=== PATIENT | female | born 1965 | race Caucasian/White ===

== ENCOUNTER 2023-11-03 12:03 | Outpatient (CLI) | payer OTHER, SELFPAY ==
[2023-11-03 18:51] LABS: Hemoglobin 13.8 g/dL (12.0-15.0); Mean Corpuscular HGB Conc 30.7 g/dl (32-36); Mean Corpuscular Hemoglobin 29.6 pg (26-34); Mean Corpuscular Volume 96.6 fl (80-100); Platelet Count Result 220 k/mm3 (150-375); Red Blood Count 4.66 M/mm3 (4.2-5.4); Red Cell Distribution Width 13.5 % (11.5-14.5); White Blood Count 8.2 K/mm3 (4.5-10.0)
[2023-11-03 21:19] LABS: Folic Acid > 20.0 ng/mL (2.76->20)
[2023-11-03 22:04] LABS: Hemoglobin A1C 7.5 % (<5.7)
[2023-11-04 00:03] LABS: Alanine Aminotransferase 19 U/L (6-35); Albumin Level 4.5 g/dL (3.5-5.1); Alkaline Phosphatase 90 U/L (38-126); Anion Gap 9 mmol/L (4-12); Aspartate Amino Transferase 44 U/L (14-36); Bilirubin,Total 0.6 mg/dL (0.2-1.3); Blood Urea Nitrogen 11 mg/dL (7-17); Calcium 9.6 mg/dL (8.4-10.2); Carbon Dioxide 26 mmol/L (22-30); Chloride 107 mmol/L (98-107); Cholesterol 131 mg/dL (0-200); Estimated Glomerular Filt Rate > 60; Glucose 130 mg/dL (65-110); HDL Direct 30 mg/dL; Potassium 4.6 mmol/L (3.4-5.0); Sodium 142 mmol/L (137-145); Triglycerides 81 mg/dL (<150)
[2023-11-04 00:13] LABS: LDL Cholesterol Direct 93 mg/dL
== END 2023-11-03 12:04 | disposition home or self-care (01) ==
PROVIDERS: PCP Nurse Practitioner Adult Health; Visit Provider Nurse Practitioner Adult Health
DX: E11.9 Type 2 diabetes mellitus without complications (principal); Z98.890 Other specified postprocedural states
CPT/HCPCS: 36415; 80053; 80061; 82607; 82746; 83036; 84443; 85027

== ENCOUNTER 2024-03-26 14:22 | Outpatient (CLI) | payer OTHER, SELFPAY ==
--- NOTE | ~2024-03-26 | XR_ITS ---
EXAMINATION: XR knee LT min 4V, XR knee RT min 4V DATE: 03/26/2024 14:51 INDICATION: Bilateral primary osteoarthritis of the knees TECHNIQUE: 1. Weight bearing anteroposterior and Álvarez, sunrise, and flexed lateral views of the left knee w ere obtained. 2. Weight bearing anteroposterior and Álvarez, sunrise, and flexed lateral views of the right knee were obtained. COMPARISON: None. FINDINGS: Tricompartmental osteoarthritis at the bilateral knees, severe at the lateral compartment of the left knee with remodeling of the articular surface of the lateral tibial plateau and resulting in mild le ft genu valgus. There is moderate disc height loss in the medial compartment of the left knee and all 3 compartments of the right knee and mild joint space narrowing at the patellofemoral compartment of the left knee. Or marginal osteophytes in all 3 components of both knees most prominent at the yarbrough lofemoral compartments. No fractures. No knee joint effusions. Moderate-sized enthesophyte at the dis tami pole of the left patella. IMPRESSION: 1. Tricompartmental osteoarthritis at both knees, severe at the lateral compartment of the left knee and moderate at the medial compartment left knee and all 3 compartments in the right knee. Reviewed, dictated and finalized at location A. IMPRESSION: 1. Tricompartmental osteoarthritis at both knees, severe at the lateral compart ment of the left knee and moderate at the medial compartment left knee and all 3 compartments in the right knee.
== END 2024-03-26 14:23 | disposition home or self-care (01) ==
PROVIDERS: PCP Nurse Practitioner Adult Health; Visit Provider Orthopaedic Surgery
DX: M17.0 Bilateral primary osteoarthritis of knee (principal)
CPT/HCPCS: 73564

== ENCOUNTER 2025-04-12 11:43 | Outpatient (CLI) | payer OTHER, SELFPAY ==
[2025-04-12 13:26] LABS: Hematocrit 43.0 % (37.0-47.0); Hemoglobin 13.6 g/dL (12.0-15.0); Immature Granulocyte Percent A 0.4 % (0-0.5); Lymphocytes Absolute Auto 2.04 K/mm3 (0.9-3.2); Mean Corpuscular HGB Conc 31.6 g/dl (32-36); Mean Corpuscular Hemoglobin 30.4 pg (26-34); Mean Corpuscular Volume 96.2 fl (80-100); Nucleated Red Blood Cells Absolute Auto 0.000 K/mm3 (0.0-0.012); Nucleated Red Blood Cells Perc 0.0 % (0.0-0.2); Platelet Count Result 194 k/mm3 (150-375); Red Blood Count 4.47 M/mm3 (4.2-5.4); White Blood Count 7.2 K/mm3 (4.5-10.0)
[2025-04-12 13:40] LABS: Albumin Level 4.1 g/dL (3.5-5.1)
[2025-04-12 13:47] LABS: Anion Gap 5 mmol/L (4-12); Blood Urea Nitrogen 11 mg/dL (7-17); Calcium 8.8 mg/dL (8.4-10.2); Carbon Dioxide 29 mmol/L (22-30); Chloride 102 mmol/L (98-107); Estimated Glomerular Filt Rate > 60; Glucose 91 mg/dL (65-110); Potassium 4.3 mmol/L (3.4-5.0); Sodium 136 mmol/L (137-145)
[2025-04-12 14:44] LABS: MRSA (PCR) NOT DETECTED (NOT DETECTE)
[2025-04-12 15:43] LABS: Hemoglobin A1C 6.3 % (<5.7)
== END 2025-04-12 11:44 | disposition home or self-care (01) ==
LOC: ANHSURGERY 11:46
PROVIDERS: Anesthesiology; PCP Nurse Practitioner Family; Visit Provider Orthopaedic Surgery
DX: Z01.812 Encounter for preprocedural laboratory examination (principal); M17.2 Bilateral post-traumatic osteoarthritis of knee; E11.9 Type 2 diabetes mellitus without complications
CPT/HCPCS: 36415; 73564; 80048; 80307; 82040; 83036; 85025; 87641

== ENCOUNTER 2025-04-12 14:32 | Outpatient (CLI) | payer OTHER, SELFPAY ==
--- NOTE | ~2025-04-12 | XR_ITS ---
EXAMINATION: XR knee LT min 4V, 04/12/2025 14:35 CDT HISTORY: M17.0 - Bilateral primary osteoarthritis of knee COMPARISON: No comparisons available. Findings: No acute fracture or malalignment. Severe tricompartmental degenerative changes, small effusion Soft tissues unremarkable. Impression: No acute fracture or malalignment. Reviewed, dictated and finalized at location A. Impression: No acute fracture or malalignment.
--- OUTSIDE RECORDS SUMMARY | 2025-04-12 15:09 | XMS_ITS | Clinical Summary ---
Author Organization [facility] Address [address] [place] [address] Phone Care Team Providers Care Game Moderator Name Role Phone Unavailable Primary Care Provider Unavailabl e Allergies No known active allergies Medications celecoxib (CeleBREX) 200 MG Capsule Take 200 mg by mouth 2 times daily. Active omeprazole (PriLOSEC) 40 MG CAPSULE DELAYED RELEASE Take 40 mg by mouth nightly. Active escitalopram (Lexapro) 20 MG Tablet Take 20 mg by mouth nightly. Active irbesartan (AVAPRO) 300 MG Tablet Take 300 mg by mouth nightly. Active Semaglutide,0.2 5 or 0.5MG/DOS, (Ozempic, 0.25 or 0.5 MG/DOSE,) 2 MG/1.5ML Solution Pen-injector by Subcutaneous route once a week. Active Estradiol (Imvexxy Maintenance Pack) 10 MCG INSERT by Vaginal route once a week. Active Cholecalciferol (VITAMIN D3 PO) Take by mouth daily. Active Cyanocobalamin (VITAMIN B12 PO) Take by mouth daily. Active Multiple Vitamin (MULTI-VITAMIN PO) Take by mouth daily. Active ALPRAZolam (XANAX PO) Take 0.25 mg by mouth. Active Family History Medical History Relation Name Comments Cancer Maternal Grandfather Liver Cancer Maternal Grandmother Blood Cancer Mother Breast Stroke Mother Cancer Paternal Grandmother Female Relation Name Status Comments Father Maternal Grandfather Maternal Grandmother Mother Paternal Grandmother Social History Tobacco Use Types Packs/Day Years Used Date Smoking Tobacco: Never Smokeless Tobacco: Never Alcohol Use Standard Drinks/Week Comments Not Currently 0 (1 standard drink = 0.6 oz pur e alcohol) Comments Unknown Sex and Gender Information Value Date Recorded Sex Assigned at Not on file Legal Sex Female 11:32 PM CDT Gender Identity Not on file Sexual Orientation Not on file Last Filed Vital Signs Vital Sign Reading Time Taken Comments Blood Pressure 119/68 01/18/2021 12:06 PM CDT Pulse 77 01/18/2021 12:06 PM CDT Temperature 36 C (96.8 F) 01/18/2021 12:06 PM CDT Respiratory Rate 20 01/18/2021 12:06 PM CDT Oxygen Saturation 100% 01/18/2021 12:06 PM CDT Inhaled Oxygen Concentration - - Weight 121.6 kg (268 lb) 01/02/2021 9:00 AM CDT Height 170.2 cm (5' 7) 01/02/2021 9:00 AM CDT Body Mass Index 41.97 01/02/2021 9:00 AM CDT Plan of Treatment Health Maintenance Due Date Last Done Comments Hepatitis C Virus (HCV) Screening 1965 Mammogram 1965 Hepatitis B Immunization (1 of 3 - 19+ 3-dose series) 1984 Pap Smear 1986 Cervical Cancer Screening (CCS) 10/24/1995 HPV/Cotest 10/24/1995 Cologuard 2010 Immunochemical Fecal Occult Blood 2010 Pneumococcal Immunization (5 0+ years) (1 of 1 - PCV) 10/24/2015 Zoster Immunization (1 of 2) 10/24/2015 Influenza Immunization (#1) 2025 SARS-COV-2 Immunization (3 - 2024- season) 2025 11/10/2020, 10/13/2020 Colonoscopy 01/18/2031 01/18/2021 Colorectal Cancer Screening 01/18/2031 Respiratory Syncytial Virus (RSV) Immunization (Adult) (1 - 1-dose 75+ series) 2040 DTaP/Tdap/Td Immunization Discontinued 11/26/2015 TdaP Immunization Completed 11/26/2015 Human Papillomavirus (HPV) Immunization Aged Out No longer eligible based on patient's age to complete this topic Meningococcal Immunization (ACWY) Aged Out No longer eligible based on patient's age to complete this topic Rotavirus Immunization Aged Out No lo nger eligible based on patient's age to complete this topic
--- OUTSIDE RECORDS SUMMARY | 2025-04-12 15:09 | XMS_ITS | Clinical Summary ---
Author Organization [facility] Aut[facility] Address [address] [place] [address] Care Team Providers Care Hat Maker Name Role Phone Karlene Nguyen RN Unavailable Unavailable Dafne Lutz MD Unavailable [phone] Source Comments [facility],non-owned Affiliates and Associated Physician Practices is amultiple site organization consisting of ambulatory clinics and hospital sitesin [place], [place], [place] and [place]. This disclosure is being madepursuant to the Care Everywhere program and may not contain all information available regarding this patient. Last updated 18.[facility] [employer] Allergies Active Allergy Reactions Criticality Noted Date Comments Ibuprofen 11/26/2011 Metformin 11/26/2011 Medications * Be aware that medications may not be up to date on this document. Alwaysverify current medications with the patient. valsartan-hydroc hlorothiazide (DIOVAN HCT) 320-25 MG tablet Take 1 Tab by mouth once daily. I po qd. Active omeprazole (PRILOSEC) 20 MG capsule Take 20 mg by mouth once daily. I po qd. Active celecoxib (CELEBREX) 200 MG capsule Take 200 mg by mouth as directed. I po am. Active levonorgestrel-e thinyl estradiol (SEASONALE) tablet Take 1 Tab by mouth once daily. I po qd. Active escitalopram (LEXAPRO) 20 MG tablet Take 20 mg by mouth once daily. I po qd. Active cycloSPORINE (RESTASIS) 0.05 % ophthalmic suspension 2 times daily. Acti ve Accu-Chek Multiclix Lancets MISC Use 1 Each three times daily before meals and at bedtime. 50 Each 3 09/10/19 13 Active insulin pen needle (NOVOFINE 30) 30G X 8 MM needle 1 Each by Injection route 2 times daily. 100 Each 6 09/20/19 13 Active liraglutide (VICTOZA) 18 MG/3ML injection Inject 1.8 mg subcutaneously once daily. Active rosuvastatin (CRESTOR) 10 MG tablet Take 1 Tab by mouth once daily. 90 Tab 3 01/22/20 13 Active Insulin Pump Disposable (V-GO 40) KITIndications:T ype II or unspecified type diabetes mellitus without mention of complication, uncontrolled Use 40 Units once daily. 40 units daily basal and 6 units with meals + SS insulin adding 2 units for each 50 that BS > 150 at mealtime 10 Kit 6 02/01/20 13 Active hydrocortisone (HYTONE) 2.5 % cream Apply to affected area 4 times daily. 20 g 1 10/13/19 14 Active insulin pen needle (NOVOFINE) 32G X 6 MM MISC Use as directed to inject twice daily 100 Each 6 11/03/19 14 Active glimepiride (AMARYL) 4 MG tablet Take two tablets by mouth daily 180 Tab 1 11/17/19 14 Active blood glucose (DILIA CONTOUR NEXT TEST) test strip Tests blood sugars twice daily and as needed 100 Strip 3 11/23/19 14 Active insulin lispro (HUMALOG) vial Basal rates at 2.6 units/hr: Total insulin 150 units daily 4 Vial 5 11/30/19 14 Active Active Problems Problem Noted Date Diagnosed Date BRENDA (obstructive sleep apnea) 09/10/2012 Type II or unspecified type diabetes mellitus without mention of complication, uncontrolled 01/09/2012 HTN (hypertension) 01/09/2012 Hyperlipidemia 01/09/2012 Morbid obesity 01/09/2012 Malaise and fatigue 01/09/2012 Depression 01/09/2012 Family History Medical History Relation Name Comments Cancer Brother 2 stomach Cancer Maternal Grandfather Cancer Maternal Grandmother Arthritis - Rheumatoid Mother Hypertension Mother Stroke Mother Relation Name Status Comments Brother 1 Alive Brother 2 Father accident Maternal Grandfather Maternal Grandmother Mother Alive Social History Tobacco Use Types Packs/Day Years Used Date Smoking Tobacco: Never Alcohol Use Standard Drinks/Week Comments No 0 (1 standard drink = 0.6 oz pur e alcohol) Comments Unknown Sex and Gender Information Value Date Recorded Sex Assigned at Not on file 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 Gender Identity Not on file Sexual Orientation Not on file Last Filed Vital Signs Vital Sign Reading Time Taken Comments Blood Pressure 124/82 10/12/2013 1:16 PM CDT Pulse 84 10/12/2013 1:16 PM CDT Temperature - - Respiratory Rate 24 10/12/2013 1:16 PM CDT Oxygen Saturation - - Inhaled Oxygen Concentration - - Weight 162.4 kg (358 lb) 10/12/2013 1:16 PM CDT Height 170.2 cm (5' 7) 10/12/2013 1:16 PM CDT Body Mass Index 56.07 10/12/2013 1:16 PM CDT Plan of Treatment Health Maintenance Due Date Last Done Comments COLOGUARD (AGES 45-75) - COL ON CA SCREENING 1965 COLON MONITORING 1965 COLONOSCOPY - COLON CA SCREENING 1965 CT COLONOGRAPHY - COLON CA SCREENING 1965 Colorectal Cancer Screening 1965 FIT - COLON CA SCREENING 1965 FLEX SIG - COLON CA SCREENING 1965 MAMMOGRAM 1965 HIV SCREENING 1980 HEPATITIS C SCREENING 10/19/1983 DIABETES-SERUM CREATININE 10/24/1983 DTAP/TDAP/TD VACCINES (1 - Tdap) 1984 HEPATITIS B VACCINE (1 of 3 - 19+ 3-dose series) 1984 DIABETES-FOOT EXAM WITH MONOFILAMENT 09/10/2012 DIABETES-HGB A1C 09/10/2012 PNEUMOCOCCAL VACCINE 50+ (1 of 1 - PCV) 10/24/2015 ZOSTER VACCINE (1 of 2) 10/24/2015 DEPRESSION SCREENING 07/27/2024 DIABETES - URINE PROTEIN SCREENING 07/27/2024 COVID-19 VACCINE (1 - 2023-2 5 season) 2025 INFLUENZA VACCINE (#1) 2025 HIB VACCINE Aged Out No longer eligi ble based on patient's age to complete this topic HPV VACCINE Aged Out No longer eligi ble based on patient's age to complete this topic MENINGOCOCCAL (Group B) VACC INE SHARED DECISION-MAKING Aged Out No longer eligibl e based on patient's age to complete this topic MENINGOCOCCAL GROUPS A/C/Y/W VACCINE Aged Out No longer eligible b ased on patient's age to complete this topic Insurance Care Teams Hat Maker Relationship Specialty Start Date End Date Karlene Nguyen RN Registered Nurse 01/09/12 Dafne Lutz MD Obstetrics and Gynecology 01/09/12
--- OUTSIDE RECORDS SUMMARY | 2025-04-12 15:09 | XMS_ITS | Clinical Summary ---
Author Organization [facility] Address [address] [place] [address] Care Team Providers Care Director Of Residence Life Name Role Phone NeelaRivka Roney ASSISTANT PROFESSOR NURSE EDUCATION Primary Care Provider + Allergies Active Allergy Reactions Criticality Noted Date Comments Adhesive Tape-Silicones Rash Medium Ibuprofen Rash Medium 11/26/2011 Metformin Stomach upset Low 11/26/2011 Medications cycloSPORINE (RESTASIS) 0.05 % ophthalmic emulsion instill 1 drop by ophthalmic route every 12 hours into affected eye(s) 0 3 Active escitalopram (LEXAPRO) 20 mg tablet take 1 tablet (20MG) by oral route every day 0 2 Active celecoxib (CeleBREX) 200 mg capsule take 1 capsule (200MG) by oral route every day as needed 0 2 Active omeprazole (PriLOSEC) 40 mg capsule take 1 capsule by oral route every day before a meal 0 2 Active cyanocobalamin (VITAMIN B-12) 1,000 mcg/mL injection inject 1 milliliter by INTRAMUSCULAR route every month 1 vial 5 6 Active triamcinolone (KENALOG) 0.5 % ointmentIndica tions:Vulvar itching Apply topically 2 (two) times a day 30 g 9 Active Additional Information Patient not taking.Reported on 03/16/2025 ticagrelor (BRILINTA) 90 mg tabletIndicati ons:cardiovasc ular disease Take 1 tablet (90 mg total) by mouth 2 (two) times a day 60 tablet 11 5 Active Ozempic 2 mg/dose (8 mg/3 mL) pen injector injection Inject 2 mg under the skin once a week 4 Active aspirin 81 mg enteric coated tablet Take 1 tablet (81 mg total) by mouth daily 90 tablet 3 5 10/14/19 26 Active atorvastatin (LIPITOR) 80 mg tablet Take 1 tablet (80 mg total) by mouth nightly 90 tablet 3 5 10/14/19 26 Active lisinopriL (PRINIVIL,ZEST RIL) 5 mg tabletIndicati ons:cardiovasc ular disease Take 1 tablet (5 mg total) by mouth daily 90 tablet 3 5 10/14/19 26 Active metoprolol tartrate (LOPRESSOR) 25 mg immediate release tablet Take 0.5 tablets (12.5 mg total) by mouth 2 (two) times a day 90 tablet 3 5 10/19/19 26 Active Active Problems Problem Noted Date Diagnosed Date STEMI (ST elevation myocardial infarction) 08/04 Healthcare maintenance 05/28/2017 Medication management 05/28/2017 Primary osteoarthritis of both knees 02/09/2017 Drug indicated 02/07/2014 Overview (10/31/2016): LONG-TERM USE MEDS NEC Arthropathy of pelvis 12/10/2013 Overview (10/29/2016): ARTHROPATHY NOS-PELVIS Depression 12/10/2013 Overview (11/06/2017): NEUROTIC DEPRESSION Multiple-type hyperlipidemia 12/10/2013 Overview (10/29/2016): MIXED HYPERLIPIDEMIA Obstructive sleep apnea syndrome 12/10/2013 Overview (10/29/2016): OBSTRUCTIVE SLEEP APNEA Hypertension 12/10/2013 Overview (10/29/2016): HYPERTENSION NOS Disorder of joint 12/10/2013 Overview (10/30/2016): ARTHROPATHY NOS-L/LEG Back pain 12/10/2013 Overview (10/30/2016): BACKACHE NOS Obesity, diabetes, and hypertension syndrome Overview (10/30/2016): DYSMETABOLIC SYNDROME X Benign hypertension 12/10/2013 Overview (10/31/2016): BENIGN HYPERTENSION Disorder of intervertebral disc 12/10/2013 Overview (10/31/2016): DISC DIS NEC/NOS-LUMBAR Morbid obesity 11/22/2012 Malaise and fatigue 01/09/2012 Type II or unspecified type diabetes mellitus without mention of complication, uncontrolled 01/09/2012 Encounters Date Type Department Care Team Description 03/16/2025 11:45 AM CDT Office Visit [facility] at [address] [place] [phone] Toribio Mauricio NP Arthropathy of pelvis (Primary Dx); Morbid obesity (HCC); Obstructive sleep apnea syndrome; Back pain, unspecified back location, unspecified back pain laterality, unspecified chronicity; Multiple-type hyperlipidemia; ST elevation myocardial infarction involving right coronary artery (HCC) 01/23/2025 Telephone [facility] at [address] [place] [address] [phone] Tosin Martin MA from Last 3 Months Immunizations Immunization Administration Dates Next Due Tdap 11/26/2015 Surgical History Surgery Date Site/Laterality Comments CARPAL TUNNEL RELEASE 07/27/2009 - 07/26/2010 Bilateral LAMINECTOMY 07/27/1995 - 07/26/1996 PARTIAL GASTRECTOMY 07/27/2013 - 07/26/2014 vertical sleeve gastrectomy ENDOMETRIAL ABLATION W/ NOVJOHNNA 07/27/2014 - 07/26/2015 Medical History Medical History Date Comments Hyperlipidemia Sleep apnea Osteoarthritis Depression 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 GERD (gastroesophageal reflux disease) RLS (restless legs syndrome) Hx of degenerative disc disease Abnormal Pap smear of cervix 2015 ASC US, HPV (+) pap smear Hypertension Family History Medical History Relation Name Comments Diabetes Cousin Car Accident Father COD at age 28 Heart attack Father's Brother Stomach cancer Half-Brother Liver cancer Maternal Grandfather Cancer Maternal Grandmother blood cancer; Breast cancer Mother Coronary artery disease Mother Depression Mother Hypertension Mother Obesity Mother Stroke Mother Diabetes Mother's Sister Pancreatic cancer Other Cancer Paternal Grandmother female ; treated w/ internal radiation Uterine cancer Paternal Grandmother Relation Name Status Comments Cousin Father (Age 28) Father's Brother Half-Brother Maternal Grandfather Maternal Grandmother Mother Alive Mother's Sister Other Paternal Grandmother Alive Social History Tobacco Use Types Packs/Day Years Used Date Smoking Tobacco: Never Smokeless Tobacco: Never Tobacco Cessation:Counseling Given: Not Answered Alcohol Use Standard Drinks/Week Comments No 0 (1 standard drink = 0.6 oz pur e alcohol) [facility] Utilities Answer Date Recorded In the past 12 months has th e electric, gas, oil, or water company threatened to shut off services in your home? No 08/05/2024 Social Connection and Isolation Panel Answer Date Recorded In a typical week, how many times do you talk on the phone with family, friends, or neighbors? More than three times a week 08/05/2024 How often do you get togethe r with friends or relatives? More than three times a week 08/05/2024 How often do you attend chur ch or mandaen services? Never 08/05/2024 Do you belong to any clubs o r organizations such as adventism groups, unions, fraternal or athletic groups, or school groups? No 08/05/2024 How often do you attend meet ings of the clubs or organizations you belong to? Never 08/05/2024 Are you , , di vorced, , never , or living with a partner? 08/05/2024 Overall Financial Resource Strain (CARDIA) Answe r Date Recorded How hard is it for you to pa y for the very basics like food, housing, medical care, and heating? Not hard at all 08/05/2024 Hunger Vital Sign Answer Date Recorded Within the past 12 months, y ou worried that your food would run out before you got the money to buy more. Never true 08/05/19 25 Within the past 12 months, t he food you bought just didn't last and you didn't have money to get more. Never true 08/05/2024 PRAPARE - Transportation Answer Date Re corded In the past 12 months, has l ack of transportation kept you from medical appointments or from getting medications? No 07/27 In the past 12 months, has l ack of transportation kept you from meetings, work, or from getting things needed for daily living? No 08/05/2024 Housing Stability Vital Sign Answer Irvin e Recorded In the last 12 months, was t here a time when you were not able to pay the mortgage or rent on time? No 08/05/2024 In the past 12 months, how m any times have you moved where you were living? 0 08/05/2024 At any time in the past 12 m [facility], were you homeless or living in a skilled nursing (including now)? No 08/05/2024 Personal Safety Answer Date Recorded Have you ever been in or are you currently in a harmful physical or emotional relationship or is someone making you feel afraid or unsafe? 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 Not on file Not on file Obstetrics History Para Term AB IAB SAB Ectopic Multiple Livin g Live Births 0 0 0 0 0 0 0 0 0 0 0 Last Filed Vital Signs Vital Sign Reading Time Taken Comments Blood Pressure 129/79 03/16/2025 11:51 AM CDT Pulse 80 03/16/2025 11:51 AM CDT Temperature 36.5 C (97.7 F) 08/06/2024 8:10 AM RECONNAISSANCE CREWMEMBER Respiratory Rate 18 03/16/2025 11:51 AM CDT Oxygen Saturation 97% 08/06/2024 8:10 AM RECONNAISSANCE CREWMEMBER Inhaled Oxygen Concentration - - Weight 108.4 kg (239 lb) 03/16/2025 11:51 AM CDT Height 170.2 cm (5' 7) 03/16/2025 11:51 AM CDT Body Mass Index 37.43 03/16/2025 11:51 AM CDT Plan of Treatment Health Maintenance Due Date Last Done Comments Albumin Creatinine Ratio, Urine 1965 Breast Cancer Screening-Mammogram 1965 Colon Cancer Screening-Colonoscopy 1965 Hepatitis C Screening 1965 Dilated Eye Exam 1965 Hepatitis B Screening 10/24/1983 Pneumococcal vaccine <65 (1 of 2 - PCV) 1984 Cervical Cancer Screening 11/19/2013 11/19/2012 Zoster Vaccine (1 of 2) 10/24/2015 Depression Screening 05/29/2018 05/29/2017 Foot Exam 05/29/2018 05/29/2017 Regular Well Visit/Exam 18-64 05/20/2020 05/20/2019, 11/06/2017 Hemoglobin A1C 02/02/2025 08/05/2024, 02/24, 05/23/2017 Covid-19 Vaccine ( - 2024-2 6 season) 2025 11/10/2020, 10/13/2020 Influenza Vaccine (#1) 2025 Lipid Panel 08/05/2025 08/05/2024, 02/24, 05/23/2017, Additional history exists eGFR 08/06/2025 08/06/2024, 07/27, 08/04/2024, Additional history exists DTaP/Tdap/Td Vaccine (2 - Td or Tdap) 11/25/2025 11/26/2015 Medical Devices Implanted Type Area Brazer Helper Induction Device Identifier Shelf Expiration Date Model / Serial / Lot Medtronic Card Vasc Surgery 2.75 X 22mm [place] [employer] Coronary Stent [id number] - [id number] Implanted:Qty: 1 on 08/04/2024 by Rakesh Hanks MD at [facility] Medtronic Card Vasc Surgery 04/15/2027 [id number] / / [id number] Procedures Procedure Name Priority Date/Time Associated Diagnosis Comments EGFR Routine 08/06/2024 7:02 AM RECONNAISSANCE CREWMEMBER HEMOGLOBIN A1C Routine 08/05/2024 5:11 AM RECONNAISSANCE CREWMEMBER LIPID PANEL Routine 08/05/2024 5:11 AM RECONNAISSANCE CREWMEMBER THINPAP, REFLEX HPV ALL PTH Routine 11/19/2012 12:48 PM CDT from Last 3 Months or Most Recently Relevant to Health Maintenance Results * eGFR (08/06/2024 7:02 AM RECONNAISSANCE CREWMEMBER) eGFR >90 >=60 mL/min/1. 73 m2 Comment: Interpretive Data Reference Interval Normal >/= 90 mL/min/1.73m2 Mildly decreased* 60 - 89 mL/min/1.73m2 Mildly to moderately decreased 45 - 59 mL/min/1.73m2 Moderately to severely decreased 30 - 44 mL/min/1.73m2 Severely decreased 15 - 29 mL/min/1.73m2 Kidney Failure < 15 mL/min/1.73m2 *Relative to young adult level Estimated glomerular filtration rate is determined by the 2020 CKD-EPI equation recommended by the National Kidney Foundation (A Unifying Approach to GFR Estimation: Recommendations of the NKF-ASK Task Force on Reassessing the Inclusion of Race in Diagnosing Kidney Disease, JASN 2020). The CKD-EPI equation should not be used for patients with unstable renal function and has not been validated in children and those over 70. Current interpretive data was last reviewed 2021. Blood 08/06/2024 7:02 AM RECONNAISSANCE CREWMEMBER 08/06/2024 7:36 AM RECONNAISSANCE CREWMEMBER Dafne Preston NP LAB BLOOD ORDERABL ES Final Result [facility] K[facility]USE [address] [address] [place] [address] * (ABNORMAL) Hemoglobin A1c (08/05/2024 5:11 AM RECONNAISSANCE CREWMEMBER) Hgb A1C 5.9(H) 4.0 - 5.6 % Estimated Average Glucose 123 mg/dL [facility] KRA[facility] Comment: The ADA recommends reporting an estimated Average Glucose (eAG) with all Hemoglobin A1c results using the equation derived from a study of 507 normal and diabetic adults. Minority populations were underrepresented and children were not included. (Diabetes Care 31:9092-4152, 2008). The eAG is not equivalent to a fasting glucose. Blood 08/05/2024 5:11 AM RECONNAISSANCE CREWMEMBER 08/05/2024 5:31 AM RECONNAISSANCE CREWMEMBER us Richard Reeder MD LAB BLOOD ORDERABLES Final R esult [facility] [address] [address] Department [place] [address] * (ABNORMAL) Lipid panel (08/05/2024 5:11 AM RECONNAISSANCE CREWMEMBER) Cholesterol 108 30 - 199 mg/dL Comment: Interpretive Data Ages < or = 19 years Acceptable: <170 mg/dL Borderline high: 170-199 mg/dL High: >or= 200 mg/dL Ages > or = 20 years Desirable: <200 mg/dL Borderline high: 200-239 mg/dL High: >or= 240 mg/dL Literature References: 1. Expert Panel on Integrated Guidelines for Cardiovascular Health and Risk Reduction in Children and Adolescents. Pediatrics 2011;128:S213 2. NCEP Expert Panel. Circulation 2004;110:227 Current Interpretive Data was last revised on 2018. Triglycerides 74 <=149 mg/dL [facility] KRAUSE Comment: Interpretive Data Ages < or = 9 years Acceptable: <75 mg/dL Borderline high: 75-99 mg/dL High: >or= 100 mg/dL Ages 10 to 20 years Acceptable: <90 mg/dL Borderline high: 90-129 mg/dL High: >or= 130 mg/dL Ages > or = 20 years Desirable: <150 mg/dL Borderline high: 150-199 mg/dL High: 200-499 mg/dL Very high: >or= 499 mg/dL Literature References: 1. Expert Panel on Integrated Guidelines for Cardiovascular Health and Risk Reduction in Children and Adolescents. Pediatrics 2011;128:S213 2. NCEP Expert Panel. Circulation 2004;110:227 Current Interpretive Data was last revised on 2018. HDL 27(L) >=40 mg/dL R[facility] KRAUSE Comment: Interpretive Data Ages < or = 19 years Acceptable: >45 mg/dL Borderline low: 40-45 mg/dL Low: <40 mg/dL Ages > or = 20 years Desirable: >or= 60 mg/dL Low: <40 mg/dL Literature References: 1. Expert Panel on Integrated Guidelines for Cardiovascular Health and Risk Reduction in Children and Adolescents. Pediatrics 2011;128:S213 2. NCEP Expert Panel. Circulation 2004;110:227 Current Interpretive Data was last revised on 2018. LDL, calculated 66 <=129 mg/dL [facility] KRAUSE Comment: Interpretive Data Ages < or = 19 years Acceptable: <110 mg/dL Borderline high: 110-129 mg/dL High: >or= 130 mg/dL Ages > or = 20 years Optimal: <100 mg/dL Near optimal: 100-129 mg/dL Borderline high: 130-159 mg/dL High: >160 mg/dL Calculated using the Prosper LDL-C estimating equation. This equation was implemented on 2024. Prior to this date LDL-C was estimated using the Friedewald equation. Literature References: 1. Expert Panel on Integrated Guidelines for Cardiovascular Health and Risk Reduction in Children and Adolescents. Pediatrics 2011;128:S213 2. NCEP Expert Panel. Circulation 2004;110:227 3. Prosper Irene et al. KRSITAL Cardiol. 2019November 24;5(5):540-548. doi: 10.1001/jamacardio.2020.0013 Current Interpretive Data was last revised on 2024. Non-HDL Cholesterol 81 mg/dL [facility] KRAUSE Comment: Interpretive Data Ages < or = 19 years Acceptable: <120 mg/dL Borderline high: 120-144 mg/dL High: >145 mg/dL Ages > or = 20 years When triglycerides are >200 mg/dL, Non-HDL cholesterol is a secondary target of therapy with treatment goals that are 30 mg/dL greater than the LDL cholesterol target. Literature References: 1. Expert Panel on Integrated Guidelines for Cardiovascular Health and Risk Reduction in Children and Adolescents. Pediatrics 2011;128:S213 2. NCEP Expert Panel. Circulation 2004;110:227 Current Interpretive Data was last revised on 2018. Chol/HDL ratio 4 ROX[facility]NA KRAUSE Blood 08/05/2024 5:11 AM RECONNAISSANCE CREWMEMBER 08/05/2024 5:33 AM RECONNAISSANCE CREWMEMBER us Richard Reeder MD LAB BLOOD ORDERABLES Final R esult [facility] KRA[facility] [address] [address] [place] [address] * ThinPrep Pap, Reflex HPV all pth (11/19/2012 12:48 PM CDT) SOURCE: SEE NOTE [facility] HISTORICAL RESULTS Comment:Cervix, Endocervix CLINICAL INFORMATION: SEE NOTE [facility] HISTORICAL RESULTS Comment:Normal exam LMP SEE NOTE [facility] HISTORICAL RESULTS Comment:INFORMATION NOT PROV IDED Previous Pap SEE NOTE [facility] HISTORICAL RESULTS Comment:11/14/11 Prev. Bx SEE NOTE [facility] HISTORICAL RESULTS Comment:INFORMATION NOT PROV IDED Pap, specimen adequacy SEE NOTE [facility] HISTORICAL RESULTS Comment: Satisfactory for evaluation. Endocervical/transformation zone component present. Age and/or menstrual status not provided HPV interp SEE NOTE [facility] HISTORICAL RESULTS Comment:Negative for intraep ithelial lesion or malignancy. Lactobacillus species SEE NOTE [facility] HISTORICAL RESULTS Comment: This Pap test has been evaluated with computer assisted technology. Based on the cytology result, reflex High Risk HPV DNA testing was not performed. Regional Telecommunications Specialist SEE NOTE [facility] HISTORICAL RESULTS Comment: BKA, CT(ASCP) Test performed at [facility] [address] [address] Director: SARAHI NEWMAN DO [facility] 11/19/2012 12:4 8 PM CDT Dafne Lutz MD LAB PATHOLOGY ORDER KENAN Final Result [facility] HISTORICAL RESULTS from Last 3 Months or Most Recently Relevant to Health Maintenance Insurance [facility] CHOICE PLUS [id number] [place] [address] CHOICE PLUS [id number] [place] [address] [employer] AETNA SIGNATURE AETNA SIGNATURE Advance Directives For more information, please contact: [phone] * Full Code (Latest Code Status on File) Date Activated Date Inactivated Comments 08/04/2024 7:57 PM 08/06/2024 3:24 PM Care Teams Director Of Residence Life Relationship Specialty Start Date End Date Rivka Keita NP [address] [place] [address] PCP - General Nurse Practitioner 08/05/24
--- OUTSIDE RECORDS SUMMARY | 2025-04-12 15:09 | XMS_ITS | Encounter Summary ---
Author Organization [facility] Healthcare Address [address] [place] [address] Care Team Providers Care Grocery Stock Clerk Name Role Phone NeelaRivka Roney FERRELL Primary Care Provider + Encounter Details Date Type Department Care Team (Late st Contact Info) Description 08/11/2024 [facility] Post Discharge Follow up phone call [address] [address] Amanda Machuca RN Social History Tobacco Use Types Packs/Day Years Used Date Smoking Tobacco: Never Smokeless Tobacco: Never Alcohol Use Standard Drinks/Week Comments No 0 (1 standard drink = 0.6 oz pur e alcohol) [facility] Utilities Answer Date Recorded In the past 12 months has [employer] electric, gas, oil, or water company threatened [...] often do you attend chur ch or confucianist services? Never 08/05/2024 Do you belong to any clubs o r organizations such as religion groups, unions, fraternal or athletic groups, or [...] any time in the past 12 m [facility], were you homeless or living in a nursing home (including now)? No 08/05/2024 Personal Safety Answer Date Recorded Have you ever been in or are you currently in a harmful physical or emotional relationship or is someone making you feel afraid or unsafe? 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
--- OUTSIDE RECORDS SUMMARY | 2025-04-12 15:09 | XMS_ITS | Encounter Summary ---
Author Organization [facility] Address [address] [place] [address] Care Team Providers Care Bellman Captain Name Role Phone Karlene Nguyen RN Unavailable Unavailable Dafne Lutz MD Unavailable [phone] Encounter Details Date Type Department Care Team (Late st Contact Info) Description 05/02/2021 Lab Requisition [facility] [address] [facility] [place] [id number] [place] [address] Social History Tobacco Use Types Packs/Day Years Used Date Smoking Tobacco: Never Alcohol Use Standard Drinks/Week Comments No 0 (1 standard drink = 0.6 oz pur e alcohol) Comments Unknown Sex and Gender Information Value Date Recorded Sex Assigned at Not on file Legal Sex Female 1:25 PM PRESSURE TEST OPERATOR Gender Identity Not on file Sexual Orientation Not on file documented as of this encounter Plan of Treatment Not on file documented as of this encounter Procedures Procedure Name Priority Date/Time Associated Diagnosis Comments DERMATOPATHOLOGY Routine 05/01/2021 12:0 0 AM CDT documented in this encounter Results * DERMATOPATHOLOGY (05/01/2021 12:00 AM CDT) Case Report Dermatopathology Report Case: [id number] Authorizing Provider: Reji Garrison MD Collected: 05/01/2021 12:00 AM Ordering Location: [facility] Lab Received: 05/02/2021 01:42 PM Pathologist: Teto Mejia MD Specimen: Skin, left cheek below med canthus 4:35 PM CDT DERMATOPATHOLOGY LABORATORY Final Diagnosis Specimen A. SKIN, left cheek below med canthus: HYPERPLASTIC (HYPERTROPHIC) ACTINIC KERATOSIS (L57.0) 4:35 PM CDT DERMATOPATHOLOGY LABORATORY at 1635 CDT Clinical History R/O HAK, ISK, SCC, BCC. 4:35 PM CDT DERMATOPATHOLOGY LABORATORY Gross Description Specimen A: Received is one formalin filled container labeled with the patient's name and designated left cheek below med canthus. The specimen consists of a scissor biopsy measuring [id number]. Jar 0. 4:35 PM CDT DERMATOPATHOLOGY LABORATORY Microscopic Description Specimen A. SKIN, left cheek below med canthus: There is hyperkeratosis alternating with parakeratosis. There is epidermal hyperplasia with disorderly maturation of keratinocytes with nuclear pleomorphism confined to the lower half of the epidermis. 4:35 PM CDT DERMATOPATHOLOGY LABORATORY Disclaimer An external and internal positive and negative controls are appropriate for the histochemical, immunohistochemical and immunofluorescence stain(s) in this case (if any), except where stated explicitly. The performance characteristics of the stain(s) cited in this report were developed and its performance characteristic determined by the Dermatopathology Laboratory at [facility], directed by Dr. Tia Mejia. These tests need not be, and therefore are not, approved by the [place] Food and Drug Administration. The tests are used for clinical purposes. Billing Codes Specimen Charges Stain Charges 10351 1 4:35 PM CDT DERMATOPATHOLOGY LABORATORY Embedded Images 4:35 PM CDT DERMATOPATHOLOGY LABORATORY Pathology/Cytolog y TISSUE SPECIMEN FROM SKIN / Unknown 05/01/2021 05/02/2021 1:42 PM CDT us Reji Garrison MD LAB - PATHOLOGY/CYTOLOGY ORD ERABLES Final Result DERMATOPATHOLOGY LABORATORY [facility] - Department of Dermatology [address], [address] [phone] documented in this encounter Visit Diagnoses Not on filedocumented in this encounter Care Teams Bellman Captain Relationship Specialty Start Date End Date Karlene Nguyen, YARELY Registered Nurse 01/09/12 Dafne Lutz MD Obstetrics and Gynecology 01/09/12 documented as of this encounter
--- OUTSIDE RECORDS SUMMARY | 2025-04-12 15:09 | XMS_ITS | Encounter Summary ---
Author Organization [facility] Address [address] [place] [address] Phone Care Team Providers Care Land Checker Name Role Phone Esteban Claudio MD Primary Care Provider + Dafne Lutz MD Unavailable [phone] Unknown, Notinfile Primary Care Provider Unavail able Rivka Keita NP Primary Care Provider + Encounter Details Date Type Department Care Team (Late st Contact Info) Description 11/06/2017 Orders Only [facility] ProviderMariah MD [address] [place] [address] Social History Tobacco Use Types Packs/Day Years Used Date Smoking Tobacco: Never Smokeless Tobacco: Never Alcohol Use Standard Drinks/Week Comments No 0 (1 standard drink = 0.6 oz pur e alcohol) Comments No Sex and Gender Information Value Date Recorded Sex Assigned at Not on file 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 us Historical Provider LAB CYTOLOGY ORDERABLES F inal Result documented in this encounter Visit Diagnoses Not on filedocumented in this encounter Care Teams Land Checker Relationship Specialty Start Date End Date Esteban Claudio MD [address] [address] PCP - General 10/24/16 08/03/24 Unknown, Notinfile PCP - General 08/04/24 08/04/24 Rivka Keita NP [address] [place] [id number] PCP - General Nurse Practitioner 08/05/24 Dafne Lutz MD [address] [place] [address] [facility] 05/15/1701/24 documented as of this encounter
== END 2025-04-12 14:33 | disposition home or self-care (01) ==
LOC: ANHIMG 14:33
PROVIDERS: PCP Nurse Practitioner Family; Visit Provider Orthopaedic Surgery
DX: M17.0 Bilateral primary osteoarthritis of knee (principal)
CPT/HCPCS: 73564

== ENCOUNTER 2025-05-04 00:56 | Day surgery (SDC) | payer OTHER, SELFPAY ==
--- NOTE | 2025-04-12 11:45 | PC.NURSE ---
Report to the Outpatient Waiting Room, entrance under the green pavilion located off [facility], at time _6 am on date __05/04/25 . Planned Procedure Time: __7:30 am .? Time changes happen often and if your time is changed the preop area will call you the afternoon before. - You and your visitor will be asked to self-screen and do not enter if you have any COVID symptoms. Please call surgeon if you need to reschedule. - A mask is optional within the hospital at this time. Patients may have clear liquids (water, carbonated beverages, clear teas, apple juice) until 3 hours prior to surgery ( 4:30 am) with a maximum of 20 ounces. - No food from midnight until time of surgery and no smoking, or chewing tobacco (or any form of nicotine). No chewing gum, candy or mints. Take only the following medications with a SIP of water on the morning of surgery: _,METOPROLOL,EYE DROP DO NOT STOP ANY OF YOUR OTHER PRESCRIPTION MEDICATIONS PRIOR TO SURGERY EXCEPT THE FOLLOWING Hold all vitamins and supplements for 3 days per anesthesiologist.LAST DOSE04/30/25 Medications to discontinue per physician HOLD ASPIRIN 7 DAYS PRE OP PER DR HEARN__LAST DOSE 04/26/[address] HEARN HAS APPT TODAY MAY CONTINUE TO TAKE CELECOXIB PER DR HEARN Date to take last dose Please no make-up, nail vincentian, hairspray, perfume, deodorant, or body powder the day of surgery.? No jewelry (including any body piercings) or valuables the day of surgery, leave them at home.? Please take a shower or bath the night before, or the morning of, surgery with an antibacterial soap.? Wear comfortable, loose fitting clothing.? Children are encouraged to wear pajamas. - Jewelry must be removed prior to entering the operating room.? Rings and piercings that are not removed may be cut off. - The hospital will not accept responsibility for valuables.? - Please leave all valuables, including medications, at home the day of surgery. If you are going home after surgery, a licensed sanitation truck driver must drive you home.? - NO public transportation without another adult if you receive anesthesia. - We recommend that an adult stay with you for 24 hours following discharge. - We also recommend that you do not drive, make important decision, drink alcoholic beverages, or take any drugs that were not prescribed by your health care provider for at least 24 hours after your discharge time. For Pediatric surgeries, we recommend two adults accompany the child home. Follow any additional instructions given to you from your surgeon. verbal and written instructions given to __PATIENT and asked if any additional questions and then verbalized understanding. Patient advised to call surgeon office or pre surgery nurse liaison [phone] if any additional questions.
[2025-04-12 11:49] VITALS: BMI 37.3
[2025-04-12 12:43] VITALS: BP 144/75; PULSE 69; RESP 18; TEMP 36.2; O2SAT 100
[2025-05-04] VITALS (15 sets, daily range): BP systolic 109–149; BP diastolic 52–84; PULSE 74–96; RESP 12–18; TEMP 36.3–37; O2SAT 94–100; BMI 37.8
--- NOTE | ~2025-05-04 | XR_ITS ---
EXAMINATION: [id number], 05/04/2025 10:04 CDT HISTORY: POST OP LEFT TKA COMPARISON: No comparisons available. Findings: No acute fracture or malalignment. Prosthesis intact Soft tissues unremarkable. Impression: No acute fracture or malalignment. Reviewed, dictated and finalized at location P. Impression: No acute fracture or malalignment.
[2025-05-04] MEDS: ACETAMINOPHEN 500 MG TABLET 1000 MG PO (06:40)
[2025-05-04] MEDS: LACTATED RINGERS 1,000 ML 30 ML IV CONT ×2 (06:40→09:57)
[2025-05-04] MEDS: TRANEXAMIC ACID 1,000MG/ISO100 1,000 MG/100 ML BAG 200 MG IVPB (06:40)
--- NOTE | 2025-05-04 07:09 | WPDHPUPDATE1 ---
History and Physical Update Update Date/Time: 05/04/25 07:09 History and Physical has been reviewed, including an updated exam of the patient. There are NO changes in the patient's condition. Risks, benefits, and alternatives have been discussed and questions answered. Patient agrees to proceed with procedure.
--- NOTE | 2025-05-04 07:25 | WPDANESEPPF ---
Anes - Initial Pre Proc Eval Procedure: Operation Date: 05/04/25 07:30 Proposed Procedures p Left Total Knee Arthroplasty - Richard Ambriz MD Date/Time: 05/04/25 07:25 Surgeon: Richard Ambriz MD Pre Op Diagnosis: Prim O A Lt Knee Patient Data Age: 59 Gender: F Height: 1.69 m Weight: 106.4 kg Last Vital Signs Temp 97.2 F L 04/12/25 12:43 Pulse 69 04/12/25 12:43 Resp 18 04/12/25 12:43 BP 144/75 H 04/12/25 12:43 Pulse Ox 100 04/12/25 12:43 O2 Del Method Room Air 04/12/25 12:43 Allergies Allergy/AdvReac Type Severity Reaction Status Date / Time metformin AdvReac Severe Diarrhea Verified 05/04/25 07:18 glimepiride AdvReac Intermediate Nausea Verified 05/04/25 07:18 Home Medications ?Medication ?Instructions ?Recorded ?Confirmed ?Type cyclosporine 0.05 % eye drops in a 1 drp EACH EYE Q12H 09/17/22 04/12/25 History dropperette (Restasis) celecoxib 200 mg capsule (Celebrex) 200 mg PO DAILY #90 caps 10/14/23 04/12/25 Rx omeprazole 40 mg capsule,delayed 40 mg PO DAILY #90 caps 10/14/23 04/12/25 Rx release escitalopram oxalate 20 mg tablet 20 mg PO DAILY #90 tabs 10/19/23 04/12/25 Rx (Lexapro) cyanocobalamin (vitamin B-12) 1,000 mcg subcut MONTHLY #10 mL 11/03/23 04/12/25 Rx 1,000 mcg/mL injection solution semaglutide 2 mg/dose (8 mg/3 mL) 2 mg (0.75 mL) subcut WEEKLY #3 mL 12/17/23 04/12/25 Rx subcutaneous pen injector (Ozempic) aspirin 81 mg chewable tablet 81 mg PO DAILY 01/06/25 04/12/25 History atorvastatin 20 mg tablet 80 mg PO DAILY 01/06/25 04/12/25 History lisinopril 5 mg tablet 5 mg PO DAILY 01/06/25 04/12/25 History metoprolol tartrate 25 mg tablet 12.5 mg PO BID 01/06/25 04/12/25 History semaglutide 0.25 mg or 0.5 mg (2 2 mg subcut WEEKLY 01/06/25 04/12/25 History mg/3 mL) subcutaneous pen injector (Ozempic) ticagrelor 90 mg tablet (Brilinta) 90 mg PO Q12H 01/06/25 04/12/25 History Held on 05/04/25. Instructions: Resume on 05/06/25. Hold for 48 hours after surgery. cholecalciferol (vitamin D3) 50 2,000 unit PO DAILY 04/12/25 04/12/25 History mcg (2,000 unit) capsule loratadine 10 mg tablet (Allergy 10 mg PO DAILY 04/12/25 04/12/25 History Relief (loratadine)) multivitamin with minerals-folic 2 tablet PO DAILY 04/12/25 04/12/25 History acid 200 mcg chewable tablet (Adult Multivitamin Gummies) aspirin 81 mg tablet,delayed 81 mg PO BID 14 days #28 tabs 05/04/25 Rx release oxycodone-acetaminophen 5 mg-325 1 - 2 tablet PO Q4-6H PRN pain 7 05/04/25 Rx mg tablet days #30 tabs prednisone 5 mg tablet 5 mg PO DAILY 3 weeks #21 tabs 05/04/25 Rx Laboratory Tests 05/04/25 05/04/25 06:44 06:49 POC Capillary Glucose 103 mg/dl (65-105) Blood Type O Positive Antibody Screen Pending Patient hx anesthesia problems: none Family hx anesthesia problems: none Results Review: All pre-operative results and documents have been reviewed as part of the pre-operative evaluation. [facility] Past Medical History Medical History Recent heart attack (~07/2024) HTN (hypertension) Diabetes Arthritis Anxiety Surgical History Surgical History History of gastric surgery History of carpal tunnel release History of laminectomy Family History Family History Mother Cerebrovascular accident Sibling Stomach cancer Grandparent Liver cancer Other Family history of arthritis Family history of malignant neoplasm Social History Social History Smoking status: Never smoker Additional smoking assessment comments: DENIES ANY FORM OF TOBACCO USE Alcohol intake: current Alcohol use details: ONE DRINK/MONTH Do You Feel Safe in your Home?: Yes Lack of Transportation: No Lack of Food: Never True Current Housing: I Have Housing Concerned About Future Housing: No Difficulty Paying Gas/Electric Bills: No Difficulty Paying for Meds: No Currently Unemployed: No Education: Bachelor's Degree Difficulty w/ Childcare or Family Care: No Living arrangements: alone Spiritual care concerns: No Anes - Eval Final PreProcedure Day of Procedure 05/04/25 07:25 Patient weight: obese Heart: regular rate and rhythm Lungs: clear to auscultation Airway: Mallampati scale class II Neurological: alert and oriented Last oral intake: >/= 8 hours ASA classification: III Emergent: no Anesthetic plan: proceed Anesthesia type and monitoring: general LMA and standard monitoring Results Review: All pre-operative results and documents have been reviewed as part of the pre-operative evaluation. Informed Consent: The patient's anesthetic plan and its attendant risks and benefits were discussed with the patient/family/POA. Questions were solicited and answers provided to the satisfaction of the patient/family/POA.
[2025-05-04] MEDS: ceFAZolin 2 GM in SODIUM CHLORIDE 0.9% IV 50 ML 100 ML IVPB ×3 (08:06→23:52)
[2025-05-04] MEDS: SODIUM CHLORIDE 0.9% IV 37.7 ML, MORPHINE SULFATE INJ (*CRX) 2 MG, ROPivacaine HCL 1% 2... INFILTRATE (08:06)
[2025-05-04] MEDS: TRANEXAMIC ACID 1,000 MG/10 ML AMPUL 1000 MG IV PUSH (09:25)
--- NOTE | 2025-05-04 09:41 | P.OP_ITS ---
Procedure Note - Detailed Date of Procedure 05/04/25 Pre-op Diagnosis Left knee degenerative arthritis. Post-op Diagnosis Same Procedure Performed Calipered, kinematically aligned total knee replacement left knee. Surgeon Richard Ambriz MD Building Dismantler Nancy Alexander PA-C Anesthesia General Findings According to the calipered kinematic alignment principles, the knee was balanced by the following verification checks incorporating 6 caliper measurements, using an insert goniometer to select the insert thickness, and adjusting the tibial resection following the kinematic alignment algorithm (see figure 160.10 published in Insall Kenny chapter on kinematic alignment total knee a rthroplasty.) The steps verified the femoral and tibial components were kinematically aligned coincident to the patient's pre arthritic joint lines, which closely restored the shinnecock tibial compartment forces and ligament laxities without ligament release. The Tapteraa Marco VascoK SperiKA knee, designed specifically for kinematic alignment, fit optimally. Moderate valgus deformity corrected. Slight posterolateral capsule release and popliteus resection. The record of verification checks were documented and scanned into the chart. Distal Femoral Resection: Distal Medial 6 mm(cartilage worn), Distal Lateral 6 mm(cartilage worn) Target thickness of 8mm Unworn, 6mm Worn (No Cartilage). Posterior Femoral Resection: Posterior Medial 7 mm, Posterior Lateral 5 mm(cartilage worn) Target thickness of 7mm Unworn, 5mm Worn (No Cartilage). Description of Procedure General anesthesia was administered. A well-padded tourniquet was placed high on the thigh. The limb was prepped and draped in the usual sterile fashion. The limb was exsanguinated and the tourniquet inflated to 300 mmHg during exposure and cementation. A longitudinal incision was created over the midline of the knee. Sharp dissection was taken through subcutaneous tissues. Electrocautery was used for hemostasis. A trivector approach to the knee joint was performed. The ACL, an terior horns of the menisci, and fat pad were excised, and a subperiosteal dissection was carried along the posterior medial border of the tibia. Starting midway between the top of the notch in the anterior femoral cortex, I drilled a 9 mm diameter hole parallel to the anterior cortex to minimize flexion of the femoral component and promote patella tracking. I verified the existence of a 5-10 mm bone bridge between the posterior aspect of the hole and the anterior limit of the intercondylar notch. An intraosseous positioning nelly was inserted 10 cm into the femur perpendicular to the distal joint line and parallel to the anterior cortex. I used a distal femoral referencing guide that compensated 2 mm when the cartilage was worn on the distal medial femoral condyle, and 2 mm when the car tilage was worn on the distal lateral femoral condyle. The basis for setting the distal and posterior femoral resection guide is knowing that the varus and valgus grade II to IV Kellegren-Trev osteoarthritic knees have negligible bone wear at 0? and 90? and that the mean full-thickness cartilage wear approximates 2 mm. I measured the thickness of distal femoral resections with a caliper to +/- 0.5 mm. The thickness of each resection was adjusted to match the thickness of the respective condyle of the femoral component within 0.5 mm of target after compensating for cartilage wear and kerf. When the distal resection was 1-2 mm too thin, a recut guide was used to adjust the cut. When the distal resection was too thick, a 1 or 2 mm thick washer was fixed to the back of the 4-in-1 chamfer block to al a corrective gap between the femoral component and distal femur. I set posterior femoral referencing guide at 0? orientation to position the pin holes for the 4 in 1 chamfer block. The celio wing measured the width of the distal femoral resection and selected the size of the 4 in 1 chamfer block and femoral component. The AP sizer confirmed the size. I measured the thickness of the posterior femoral resections with a caliper before making the anterior and chamfer cuts. I adjusted the thicknesses of each resection to match the thickness of the respective condyle of the femoral component within +/-0.5 mm after compensating for cartilage wear and curve. When a posterior resection femoral resection was 1-2 mm too thick or thin a corrective correction was made by shifting or rotating the 4 in 1 chamfer block as needed. The chamfer block was secured in the correct position with compression screws. The anterior and chamfer femoral resections were made. These caliper measurements and corrections verified that the femoral component was set coincident with the patient's pre-arthritic distal and posterior femoral joint lines. I removed all the medial and lateral femoral and tibial osteophytes to restore the pre arthritic length of the medial and lateral collateral ligaments. I lane AP lines along the major axis of the lateral tibial plateau in between the tibia l spines which identified the flexion extension plane of the knee. A conventional extramedullary tibial resection guide was applied to the ankle. An celio wing was placed medially in the saw slot. The varus valgus angle of the tibial resection guide was adjusted until the guide paralleled the proximal tibial articular surface after compensating for cartilage and bone wear. The slope of flexion extension angle of the tibial resection guide was adjusted until the celio wing paralleled the slope of the medial tibia after compensating for wear. The AP axis of the tibial resection guide was adjusted parallel to the two lines. The proximal tibia was resected, partially releasing the insertion of the posterior cruciate ligament. The thickness of the medial and lateral lateral tibial condyle was measured at the base of the tibial spines. I visually verified the slope of the medial border of the resection was parallel to the patient's pre arthritic slope after compensating for cartilage and bone wear. I removed the remnants of the posterior horns of the menisci and posterior osteophytes and cauterized the inferior lateral genicular vessels. The Aquamantys bipolar device was also used to for additional hemostasis. When the knee had a preoperative flexion contracture of 20? or more I teased the capsule off the posterior femur with a curved 3 quarter-inch osteotome. I administered the posterior femoral periosteal injection by delivering 10 cc using a 20 gauge spinal needle at the most medial and 10 cc at the most lateral femoral spur surface which reduced the risk of injury to the posterior neurovascular structures. I followed 6 options in a decision tree to fine tune the varus valgus and posterior slope orientation of the tibial component to restore the patient's pre arthritic tibial joint line and limb alignment. First, I adjusted the varus- valgus orientation of the proximal tibia resection working in 1 degree to 2 degree increments until there was negligible medial and lateral lift off of the distal femoral and proximal tibial resection from the spacer block during a varus valgus laxity assessment in extension. I selected the largest anatomic shape trial tibial base plate that fit within the cortical boundary of the proximal tibial resection. The base plate was best fit parallel to the cortical boundary which set the Internal-external orientation of the anterior to posterior and medial to lateral positions. The best fit method set the AP axis of the tibial base plate and insert parallel to the flexion extension plane of the pre arthritic knee. I pinned the trial tibial base plate, prepared the cruciate slot, and fixed the base plate to the tibia with the cruciate stem. I inserted the trial femoral component. The knee was placed in full extension. Varus valgus laxity is of the knee with trial components were assessed. When asymmetric laxity was observed a 1-2 degree varus or valgus recut guide was used to fine tune the tibial resection until the laxity was 1 degree or less in full extension like the shinnecock knee. The following steps determined the optimal insert thickness within +/-1 mm. First I inserted an insert goniometer that matched the thickness of the spacer block. I reduced the patella and then with the knee in maximum extension, I verified the knee hyperextended a few degrees and had negligible varus valgus laxity, like the pre arthritic knee. Next, I measured the external tibial orientation which was the angle the insert goniometer intersected the sagittal line on the medial condyle of the femoral trial component. Then with the knee in 15-30 degrees flexion I verified a 3-4 mm gap in the lateral compartment and no gap in the medial compartment during a 2nd varus valgus laxity test. Next, I placed the knee in 90? of flexion and the foot resting on the operating table and measured the internal tibial orientation. I repeated the steps until I identified the insert thickness that provided the highest external tibia orientation in extension and the highest internal tibial orientation at 90? flexion without anterior lift-off of the insert from the tibial base plate. The insert with this thickness was implanted. I applied a posterior drawer test with the tibia distracted by gravity and verified no posterior subluxation of the tibia relative to the femur. The thickness of the shinnecock patella was measured with a caliper. The patella was resected using the oscillating saw. The best fitting anatomic patella button was selected. The fixation holes were drilled. When the patella and patella but tons combined thickness was thicker than the shinnecock patella, the patella was recut. The patella remained centered on the trochlea and tracked well throughout the entire arc of flexion and extension. I used pulse lavage to clean the bony surfaces of debris and dried bone. I cemented the tibial, femoral, and patellar components using 1 bag of methylmethacrylate with Gentamycin, then rechecked the stability at full extension, 15-30 degrees, and 90? flexion and verified yarsani of the entire arc of motion of the knee. The circulating nurse confirmed the sponge and needle counts were correct. I used pulse lavage to rinse the joint and wound. The extensor mechanism was closed with interrupted #1 Vicryl suture and #1 running Stratafix suture. The subcutaneous layer was closed with interrupted #1 Vicryl suture followed by 2-0 Stratafix and 3-0 Stratafix. Steri-Strips placed on the skin. Silver impregnated occlusive dressing applied to the wound. A light gauze wrap and Nelson bandage were placed. The patient was transferred to the recovery room in stable condition. There were no complications. Implants Medacta K spheriKA Femoral component SpheriKA size 4, tibial component size t3i4, vitamin-E flex insert, thickness 12 mm, Anatomic patella implant size 3. Estimated Blood Loss 20 Tourniquet Time Total Tourniquet Time: 48 Drains No Pathology None sent Complications No immediate complications Condition Stable Disposition PACU [facility] Billing Surgery - Charge Forward: Surgery Billing
[2025-05-04] MEDS: fentaNYL CITRATE INJ (*CRX) 100 MCG/2 ML VIAL 25 MCG IV PUSH ×2 (10:28→10:45)
--- NOTE | 2025-05-04 11:36 | ADMGEN ---
This patient, Hanane Bansal, was admitted to [facility] Surg Room 331-02. Patient/family oriented to hospital policies and general routines including ID bracelet, bed and alarms, visiting hours, pain management, procedures, bathroom and other care routines, personal items, smoking policy, room service/diet, and visiting hours. Information on how to activate the Rapid Response Team has been discussed. Patient/Family are encouraged to report perceived risks to care and to ask questions if they do not understand what they are told or what they should do. Report from [facility] PACU
[2025-05-04] MEDS: CELECOXIB 200 MG CAPSULE PO (11:43)
[2025-05-04] MEDS: oxyCODONE/ACETAMINOPHEN (*CRX) 10-325 MG TABLET 1 TAB PO (11:43)
[2025-05-04] MEDS: SENNA/DOCUSATE SODIUM TABLET 2 TAB PO ×2 (11:43→17:23)
[2025-05-04] MEDS: ACETAMINOPHEN 325 MG TABLET 650 MG PO ×3 (11:44→23:41)
[2025-05-04] MEDS: ASPIRIN 81 MG ENTERIC TABLET PO ×2 (11:44→20:59)
[2025-05-04] MEDS: LORATADINE 10 MG TABLET PO (11:44)
[2025-05-04] MEDS: FAMOTIDINE 20 MG TABLET PO ×2 (11:44→20:59)
[2025-05-04] MEDS: PANTOPRAZOLE 40 MG TABLET PO ×2 (11:45→20:59)
[2025-05-04] MEDS: METOPROLOL TARTRATE 12.5 MG TABLET PO ×2 (11:45→21:00)
[2025-05-04] MEDS: cycloSPORINE 0.4 ML OPHTH SOLUTION 1 DROP EACH EYE ×2 (11:49→20:59)
--- NOTE | 2025-05-04 13:11 | PCPTNOTE ---
Attempted PT evaluation, pt refused stating she was too tired. Nursing aware
[2025-05-04] MEDS: oxyCODONE/ACETAMINOPHEN (*CRX) 5-325 MG TABLET 1 TABLET PO (17:56)
[2025-05-04] MEDS: ATORVASTATIN 40 MG TABLET 80 MG PO (20:59)
[2025-05-04] MEDS: ESCITALOPRAM OXALATE 10 MG TABLET 20 MG PO (21:03)
[2025-05-05 00:49] VITALS: BP 116/54; PULSE 82; RESP 18; TEMP 37; O2SAT 96
[2025-05-05 00:50] VITALS: BP 116/54; PULSE 82; RESP 18; TEMP 37; O2SAT 96
[2025-05-05] MEDS: oxyCODONE/ACETAMINOPHEN (*CRX) 5-325 MG TABLET 1 TABLET PO ×2 (04:01→09:40)
[2025-05-05 04:21] VITALS: BP 120/68; PULSE 74; RESP 18; TEMP 37.1; O2SAT 100
[2025-05-05 04:26] VITALS: BP 120/68; PULSE 74; RESP 18; TEMP 37.1; O2SAT 100
[2025-05-05] MEDS: ACETAMINOPHEN 325 MG TABLET 650 MG PO ×2 (05:39→12:11)
[2025-05-05 08:03] LABS: Hematocrit 35.2 % (37.0-47.0); Hemoglobin 11.2 g/dL (12.0-15.0); Immature Granulocyte Percent A 0.3 % (0-0.5); Lymphocytes Absolute Auto 1.90 K/mm3 (0.9-3.2); Mean Corpuscular HGB Conc 31.8 g/dl (32-36); Mean Corpuscular Hemoglobin 30.4 pg (26-34); Mean Corpuscular Volume 95.4 fl (80-100); Nucleated Red Blood Cells Absolute Auto 0.000 K/mm3 (0.0-0.012); Nucleated Red Blood Cells Perc 0.0 % (0.0-0.2); Platelet Count Result 176 k/mm3 (150-375); Red Blood Count 3.69 M/mm3 (4.2-5.4); White Blood Count 9.6 K/mm3 (4.5-10.0)
[2025-05-05 08:24] LABS: Anion Gap 5 mmol/L (4-12); Blood Urea Nitrogen 12 mg/dL (7-17); Calcium 8.7 mg/dL (8.4-10.2); Carbon Dioxide 29 mmol/L (22-30); Chloride 101 mmol/L (98-107); Estimated CRCL calculation 91 ml/min; Estimated Glomerular Filt Rate > 60; Glucose 100 mg/dL (65-110); Potassium 4.1 mmol/L (3.4-5.0); Sodium 135 mmol/L (137-145)
[2025-05-05] MEDS: ceFAZolin 2 GM in SODIUM CHLORIDE 0.9% IV 50 ML 100 ML IVPB (09:15)
[2025-05-05] MEDS: SENNA/DOCUSATE SODIUM TABLET 2 TAB PO (09:15)
[2025-05-05] MEDS: LORATADINE 10 MG TABLET PO (09:15)
[2025-05-05] MEDS: ASPIRIN 81 MG ENTERIC TABLET PO (09:15)
[2025-05-05] MEDS: CELECOXIB 200 MG CAPSULE PO (09:15)
[2025-05-05] MEDS: PANTOPRAZOLE 40 MG TABLET PO (09:15)
[2025-05-05] MEDS: FAMOTIDINE 20 MG TABLET PO (09:15)
[2025-05-05 09:18] VITALS: PULSE 72
[2025-05-05] MEDS: METOPROLOL TARTRATE 12.5 MG TABLET PO (09:18)
[2025-05-05] MEDS: cycloSPORINE 0.4 ML OPHTH SOLUTION 1 DROP EACH EYE (09:21)
== END 2025-05-05 12:30 | disposition home or self-care (01) ==
LOC: ANHSURGERY 07:09 → ANH3MEDSUR 11:06
PROVIDERS: Physician Assistant Surgical; PCP Nurse Practitioner Family; Visit Provider Orthopaedic Surgery
PROC: (CPT 27447; principal; 2025-05-04 07:30)
DX: M17.12 Unilateral primary osteoarthritis, left knee (principal); I10 Essential (primary) hypertension; E11.9 Type 2 diabetes mellitus without complications; I25.2 Old myocardial infarction; E66.9 Obesity, unspecified; Z68.37 Body mass index [BMI] 37.0-37.9, adult
CPT/HCPCS: 27447; 36415; 73560; 80048; 82948; 85025; 86850; 86900; 86901; 97110; 97116; 97161; 97165; 97530; 97535; C1776; J0690; A9270; C1713; J0166; J1100; J1885; J2003; J2250; J2270; J2405; J2704; J2795; J3010; J3290; J7120; J7512